=== PATIENT | female | born 1965 | race Caucasian/White ===

== ENCOUNTER → 2019-05-11 09:01 | Outpatient (CLI) | payer BC ==
[2015-03-18 17:48] VITALS: BMI 37.8
[~2019-05-11 09:01] MED LIST: COLACE100 MG PO; CYCLOBENZAPRINE10 MG PO; FIORICET-COD 51 EACH PO; NYSTATIN ORAL SU5 ML PO; PREDNISONE20 MG PO; VIBRAMYCIN 100100 MG PO; WELLBUTRIN XL150 M1 PO
== END | disposition home or self-care (01) ==
LOC: D.US 09:01
PROVIDERS: ATTEND Internal Medicine Gastroenterology
DX: K21.9 Gastro-esophageal reflux disease without esophagitis (principal); R11.2 Nausea with vomiting, unspecified; R10.13 Epigastric pain